=== PATIENT | female | born 1980 | race Caucasian/White ===

== ENCOUNTER → 2019-02-23 | Outpatient (CLI) | payer OTHER | END | disposition home or self-care (01) | LOC: PLD 08:04 → LAB SHORT 08:04 | DX: R87.612 Low grade squamous intraepithelial lesion on cytologic smear of cervix (LGSIL) (principal); R87.618 Other abnormal cytological findings on specimens from cervix uteri | CPT/HCPCS: 88305 ==

== ENCOUNTER 2019-04-27 09:57 | Day surgery (SDC) | payer OTHER ==
[~2019-04-27] VITALS: Ht 170.2 cm; Wt 68.1 kg
[~2019-04-27 09:57] MED LIST: ALBU2.5V5 INH; ALBU90OI INH; BORIC ACID PO; MONT10T PO
[2019-04-27] MEDS ORDERED: BUSP5 PO (10:24)
--- NOTE | 2019-04-27 11:04 | NUR ---
Ambulatory in Day Surgery History, Chart, Medications and Allergies reviewed before start of procedure.Patient confirms NPO status and agrees with scheduled surgery. Patient reports completing Chlorhexadine shower X2 prior to admission to hospital.Surgical site prepped with 2% Chlorhexidine cloth wipe. Lungs clear T/O to Auscultation. PT RING REMOVED AND LEFT WITH SISTER IN LAW. GLASSES TAKEN TO PACU.
--- NOTE | 2019-04-27 12:45 | NUR ---
had to place a new iv on left arm due to implant removal since the legs would be up in stirrups. pt tolerated the procedure without difficulty.
--- NOTE | 2019-04-27 18:42 | NUR ---
SHIFT SUMMARY PT S/P LAVH TODAY. HAS HAD PAIN, MEDICATED PER ORDERS. STERI STRIPS IN PLACE, CDI. PT TOLERATING FOOD AND FLUIDS, A/O X4. BARROSO IN PLACE, OFF FLOOR, DRAINING. ASSISTED WITH ADL'S PRN.
--- NOTE | 2019-04-27 22:20 | NUR ---
2220: STAT LOCK REPLACED ON PT LEFT THIGH FOR COMFORT AND BETTER ROM; BARROSO PATENT CLEAR, YELLOW URINE. PT UP IN ROOM AND AMBULATES HALLS WITH RN SBA; TOLERATES WELL. ABD PAIN FROM DISTENTION AND INTERMITTENT CRAMPING MANAGED TO TOLERABLE LEVEL WITH 10MG ROXICODONE, 1MG DILAUDID AND SIMETHICONE. PT STATES PAIN INCREASES WITH MOVEMENT BUT TOLERABLE AT REST. CALL LIGHT IN REACH, KPAD TO ABD. NO PASSING FLATUS YET BUT HYPERACTIVE BOWEL TONES.
[2019-04-28 04:17] LABS: BASOPHILS ABSOLUTE AUTO 0.02 K/mm3 (0.00-0.23); BASOPHILS PERCENT AUTO 0 % (0-2); EOSINOPHILS ABSOLUTE AUTO 0.04 K/mm3 (0.00-0.68); EOSINOPHILS PERCENT AUTO 0 % (0-6); Hemoglobin 12.1 g/dL (11.5-16.0); IMMATURE GRAN ABSOLUTE AUTO 0.02 K/mm3 (0.00-0.10); IMMATURE GRAN PERCENT AUTO 0 % (0-1); LYMPHOCYTES ABSOLUTE AUTO 1.67 K/mm3 (0.84-5.20); LYMPHOCYTES PERCENT AUTO 18 % (21-46); MONOCYTES ABSOLUTE AUTO 0.53 K/mm3 (0.16-1.47); MONOCYTES PERCENT AUTO 6 % (4-13); Mean Corpuscular HGB 33.4 pg (26.0-34.0); Mean Corpuscular HGB Conc 32.7 g/dL (31.5-36.5); Mean Corpuscular Volume 102 fL (80-100); Mean Platelet Volume 11.6 fL (9.1-12.4); NEUTROPHILS ABSOLUTE AUTO 6.94 K/mm3 (1.96-9.15); NEUTROPHILS PERCENT AUTO 75 % (41-73); Platelet Count 144 K/mm3 (150-400); RDW Coefficient Variation 11.8 % (11.7-14.2); RDW Standard Deviation 44.6 fL (35.1-46.3); Red Blood Cell Count 3.62 M/mm3 (3.80-5.20); White Blood Cell Count 9.22 K/mm3 (4.00-11.30)
--- NOTE | 2019-04-28 07:23 | NUR ---
SUMMARY: POD [address] DAVID FELIPE. VSS, AFEBRILE, ROOM AIR. TOLERATING REG DIET, BELCHING, NOT YET PASSING GAS. AMBULATES HALLS, STEADY ON FEET, DENIES DIZZINESS. PAIN WELL CONTROLLED WITH 10MG ROXICODONE AND 1/2-1MG DILAUDID X2 THIS SHIFT. BARROSO ISAI'D THIS AM AND AWAIT PT VOID; ENCOURAGE AMBULATION. ANTICIPATE DC HOME LATER THIS DAY.
[2019-04-28] MEDS ORDERED: DOCU100 PO (09:54)
[2019-04-28] MEDS ORDERED: ROXICODONE5 MG PO (09:55)
[2019-04-28] MEDS ORDERED: IBUP800 PO (09:55)
--- NOTE | 2019-04-28 14:33 | NUR ---
DISCHARGE PT EDUCATED ON AND RECEIVED PRINTED DC INSTRUCTIONS AND VERBALIZED AN UNDERSTANDING. HARD RX FOR OXYCODONE AND IBUPROFEN GIVEN TO PT. IVS DC'D. PT VOIDING WITH NO DIFFICULTIES. PT GATHERING ALL PERSONAL BELONGINGS. FAMILY MEMBER AT SIDE TO TAKE HER HOME.
== END 2019-04-28 14:49 | disposition home or self-care (01) ==
LOC: ORSCMMR 09:57 → ORD 11:30 → ORSCMMR 11:30 → SURS 14:57 → ORSCMMR 04-28 14:49
PROVIDERS: Obstetrics & Gynecology
PROC: 0UT7FZZ Resection of Bilateral Fallopian Tubes, Via Natural or Artificial Opening With Percutaneous Endoscopic Assistance (ICD-10-PCS; principal; 2019-04-27 12:30)
PROC: 0JPV0HZ Removal of Contraceptive Device from Upper Extremity Subcutaneous Tissue and Fascia, Open Approach (ICD-10-PCS; principal; 2019-04-27 12:30)
PROC: 0UT9FZZ Resection of Uterus, Via Natural or Artificial Opening With Percutaneous Endoscopic Assistance (ICD-10-PCS; principal; 2019-04-27 12:30)
DX: D06.1 Carcinoma in situ of exocervix (principal); Z30.46 Encounter for surveillance of implantable subdermal contraceptive; J45.909 Unspecified asthma, uncomplicated; F17.210 Nicotine dependence, cigarettes, uncomplicated; Z79.899 Other long term (current) drug therapy
CPT/HCPCS: 36415; 84703; 85025; 88300; 88307; A9270; J0171; J0461; J0690; J1100; J1170; J1885; J2250; J2405; J2704; J2710; J3010; J7120

== ENCOUNTER 2019-04-29 21:04 | Emergency (ER) | payer OTHER ==
[~2019-04-29] VITALS: Ht 170.2 cm; Wt 65.8 kg
[~2019-04-29 21:04] MED LIST changes: +BUSP5 PO; +DOCU100 PO; +IBUP800 PO; +ROXICODONE5 MG PO
[2019-04-29 21:43] LABS: BASOPHILS ABSOLUTE AUTO 0.03 K/mm3 (0.00-0.23); BASOPHILS PERCENT AUTO 0 % (0-2); EOSINOPHILS ABSOLUTE AUTO 0.12 K/mm3 (0.00-0.68); EOSINOPHILS PERCENT AUTO 1 % (0-6); Hematocrit 38.9 % (33.0-51.0); Hemoglobin 12.7 g/dL (11.5-16.0); IMMATURE GRAN ABSOLUTE AUTO 0.04 K/mm3 (0.00-0.10); IMMATURE GRAN PERCENT AUTO 0 % (0-1); LYMPHOCYTES PERCENT AUTO 13 % (21-46); MONOCYTES ABSOLUTE AUTO 0.65 K/mm3 (0.16-1.47); MONOCYTES PERCENT AUTO 6 % (4-13); Mean Corpuscular HGB 33.2 pg (26.0-34.0); Mean Corpuscular HGB Conc 32.6 g/dL (31.5-36.5); Mean Corpuscular Volume 102 fL (80-100); Mean Platelet Volume 11.9 fL (9.1-12.4); NEUTROPHILS ABSOLUTE AUTO 8.24 K/mm3 (1.96-9.15); NEUTROPHILS PERCENT AUTO 79 % (41-73); Platelet Count 136 K/mm3 (150-400); RDW Coefficient Variation 11.7 % (11.7-14.2); RDW Standard Deviation 43.8 fL (35.1-46.3); Red Blood Cell Count 3.83 M/mm3 (3.80-5.20); White Blood Cell Count 10.38 K/mm3 (4.00-11.30)
[2019-04-29 21:57] LABS: International Normalized Ratio 0.88; Prothrombin Time Results 9.4 Sec (9.7-11.5)
[2019-04-29 21:59] LABS: Alanine Aminotransfer (ALT/SGP 52 U/L (12-78); Albumin, Blood 3.9 g/dL (3.4-5.0); Albumin/Globulin Ratio 1.1 (0.8-1.8); Alk Phos 78 U/L (50-136); Anion Gap 6 mmol/L (6-16); Aspartate Aminotrans (AST/SGOT 35 U/L (12-37); Bilirubin, Total 0.8 mg/dL (0.1-1.0); Blood Urea Nitrogen 6 mg/dL (8-24); Bun/Creatinine Ratio 7.6 (12.0-20.0); CO2, Blood 27 mmol/L (21-32); Calcium, Blood 9.8 mg/dL (8.5-10.1); Chloride, Blood 105 mmol/L (98-108); Creatinine, Blood 0.79 mg/dL (0.40-1.00); Globulin, Blood 3.7 g/dL (2.2-4.0); Glomerular Filtration Rate >60 (60-); Glucose, Blood 95 mg/dL (70-99); Potassium, Blood 3.7 mmol/L (3.5-5.5); Sodium, Blood 138 mmol/L (136-145); Total Protein, Blood 7.6 g/dL (6.4-8.2)
[2019-04-29 23:53] LABS: Source, Urine Catheter
[2019-04-30 00:29] LABS: Bilirubin, Urine Neg (Neg); Blood, Urine 3+ (Neg); Glucose Qualitative, Urine Neg (Neg); Ketones, Urine 1+ (Neg); Leukocyte Esterase, Urine 1+ (Neg); Nitrite, Urine Neg (Neg); Protein, Urine Neg (Neg); Specific Gravity, Urine 1.005 (1.003-1.022); Urobilinogen, Urine NORM (Normal)
[2019-04-30 00:57] LABS: Appearance, Urine Clear (Clear); Color, Urine Yellow (P-Yellow)
[2019-04-30 00:58] LABS: Bacteria Not Seen /hpf; Red Blood Cells, Urine 0-2 /hpf (0-2); Squamous Epithelial Cells Not Seen /hpf (Few); White Blood Cells, Urine Rare /hpf (0-5)
== END 2019-04-30 01:52 | disposition home or self-care (01) ==
LOC: ER 21:04
PROVIDERS: Physician Assistant
DX: R50.82 Postprocedural fever (principal); F17.200 Nicotine dependence, unspecified, uncomplicated; Z88.0 Allergy status to penicillin; Z88.1 Allergy status to other antibiotic agents; Z90.710 Acquired absence of both cervix and uterus
CPT/HCPCS: 36415; 71046; 80053; 81001; 83605; 85025; 85610; 85730; 87040; 87086; 96365; 96375; 99284-25; J0696; J2405; J3010; J7030

== ENCOUNTER → 2019-06-05 | Outpatient (CLI) | payer OTHER | END | disposition home or self-care (01) | LOC: LAB SHORT 17:03 → LAB EV 17:03 | DX: J02.9 Acute pharyngitis, unspecified (principal) | CPT/HCPCS: 87081 ==